=== PATIENT | male | born 1990 | race African-American/Black ===

== ENCOUNTER 2017-08-02 07:46 | Emergency (ER) | payer SELFPAY ==
[~2017-08-02] VITALS: Ht 172.7 cm; Wt 70.0 kg
[2017-08-02 07:48] VITALS: BP 132/90
[2017-08-02] MEDS ORDERED: HYDR10SY11 PO (07:52)
== END 2017-08-02 13:19 | disposition left against medical advice (07) ==
LOC: ER 07:56
DX: Z53.21 Procedure and treatment not carried out due to patient leaving prior to being seen by health care provider (principal)

== ENCOUNTER 2020-06-29 10:07 | Emergency (ER) | payer MEDICAID ==
[~2020-06-29] VITALS: Ht 177.8 cm; Wt 64.0 kg
[~2020-06-29 10:07] MED LIST: HYDR10SY11 PO
[2020-06-29 10:35] VITALS: BP 119/68
== END 2020-06-29 11:58 | disposition home or self-care (01) ==
LOC: ER 10:18
DX: F15.10 Other stimulant abuse, uncomplicated (principal); F12.10 Cannabis abuse, uncomplicated; F41.9 Anxiety disorder, unspecified
CPT/HCPCS: 93005; 99283

== ENCOUNTER 2020-06-30 07:58 | Emergency (ER) | payer MEDICAID ==
[~2020-06-30] VITALS: Ht 180.3 cm; Wt 82.0 kg
[2020-06-30] MEDS ORDERED: SODIUM CHLORIDE 0.9% 1,000 ML IV ONE (08:30)
[2020-06-30] MEDS ORDERED: OLANZAPINE 10 MG/VIAL IM ONE (08:45)
[2020-06-30] MEDS ORDERED: LORAZEPAM 2MG/ML CPJ IM ONE (08:45)
[2020-06-30 08:51] LABS: CHLORIDE 107 mEq/L (98-107)
[2020-06-30 08:55] LABS: ETHANOL BLOOD < 10 mg/dL
[2020-06-30 09:17] LABS: BASOPHILS % 1.1 % (0.0-2.0); EOSINOPHILS % 0.8 % (0.0-5.0); HEMATOCRIT. 35.7 % (42.0-52.0); HEMOGLOBIN. 11.9 g/dL (14.0-18.0); LYMPHOCYTES % 20.7 % (20.0-50.0); MEAN CORPUSCULAR HEMOGLOBIN 28.4 pg (28.0-32.0); MEAN CORPUSCULAR VOLUME 85.4 fL (80.0-94.0); MONOCYTES % 11.1 % (2.0-8.0); NEUTROPHILS % 66.3 % (40.0-76.0); PLATELET 318 x1000/uL (130-400); RED BLOOD CELL COUNT 4.18 mill/uL (4.7-6.1); RED CELL DISTRIBUTION WIDTH 13.3 % (11.6-14.6)
[2020-06-30 11:00] LABS: CLARITY URINE CLOUDY (CLEAR); COLOR URINE YELLOW (YELLOW); KETONES URINE NEGATIVE (NEGATIVE); LEUKOCYTE ESTERASE URINE NEGATIVE (NEGATIVE); NITRITE URINE NEGATIVE (NEGATIVE); OCCULT BLOOD URINE 1+ (NEGATIVE); PH URINE 5.5 (4.5-8.0); PROTEIN URINE 1+ (NEGATIVE); SPECIFIC GRAVITY URINE 1.026 (1.005-1.030); UROBILINOGEN URINE 0.2 E.U./dL (0.2-1.0)
[2020-06-30 11:09] LABS: *AMPHETAMINES SCREEN URINE PRESUMTIVE POSITIVE (NEGATIVE); *BARBITURATES SCREEN URINE NEGATIVE (NEGATIVE); *BENZODIAZEPINES SCREEN URINE NEGATIVE (NEGATIVE); *COCAINE SCREEN URINE NEGATIVE (NEGATIVE)
[2020-06-30 11:10] LABS: CANNABINOID URINE SCREEN PRESUMTIVE POSITIVE (NEGATIVE); METHADONE URINE SCREEN NEGATIVE (NEGATIVE); OPIATES URINE SCREEN NEGATIVE (NEGATIVE); PHENCYCLIDINE URINE SCREEN NEGATIVE (NEGATIVE)
[2020-06-30 21:03] VITALS: BP 116/76
== END 2020-06-30 21:05 | disposition home or self-care (01) ==
LOC: ER 08:27
DX: F15.10 Other stimulant abuse, uncomplicated (principal); G92 Toxic encephalopathy; E86.0 Dehydration
CPT/HCPCS: 36415; 80053; 80305; 80307; 80320; 80329; 81003; 85025; 93005; 96372; 99285; J2060; J3490; J7030; G0480

== ENCOUNTER 2021-06-16 19:20 | Emergency (ER) | payer MEDICAID ==
[~2021-06-16] VITALS: Ht 182.9 cm; Wt 78.0 kg
[2021-06-16 20:48] VITALS: BP 114/74
== END 2021-06-16 21:09 | disposition left against medical advice (07) ==
LOC: ER 19:20
DX: R46.89 Other symptoms and signs involving appearance and behavior (principal); Z78.1 Physical restraint status
CPT/HCPCS: 99283